=== PATIENT | female | born 1985 | race Caucasian/White ===

== ENCOUNTER 2018-07-17 16:27 | Inpatient (IN) | payer OTHER ==
--- NOTE | 2018-07-17 16:34 | PDOC ---
Rapid Medical Evaluation Time Seen by Provider: 07/17/18 16:29 Medical Evaluation: I have performed a brief in-person evaluation of this patient. The patient presents with a chief complaint of: sent by Dr. Cordelia Wheeler for admission for IV abx for right leg cellulitis with MRSA. She's been on PO Bactrim but infection has worsened. Pertinent physical exam findings: Red cellulitis to right medial LE I have ordered the following: labs, UA/hcg The patient will proceed to the ED for further evaluation. Discharge Disposition - Diagnosis Cellulitis Qualifiers: Site of cellulitis: extremity Site of cellulitis of extremity: lower extremity Laterality: right Qualified Code(s): L03.115 - Cellulitis of right lower limb - Referrals - Patient Instructions - Post Discharge Activity
[2018-07-17 17:17] LABS: BASO % 0.4 % (0-2.0); EOS % 1.5 % (0-4.5); HEMATOCRIT 37.8 % (32.4-45.2); HEMOGLOBIN 13.1 GM/dL (10.7-15.3); MCH 31.4 pg (25.7-33.7); MCHC 34.8 g/dl (32.0-36.0); MEAN CELL VOLUME 90.3 fl (80-96); MEAN PLT VOLUME 8.5 fl (7.5-11.1); MONO % 5.3 % (3.8-10.2); NEUT % 81.8 % (42.8-82.8); PLATELET COUNT 275 K/MM3 (134-434); RBC 4.18 M/mm3 (3.60-5.2); RDW 12.6 % (11.6-15.6); WHITE BLOOD COUNT 10.9 K/mm3 (4.0-10.0)
[2018-07-17] MEDS ORDERED: ACETAMINOPHEN 325 MG TABLET (FP) PO ONE ×2 (17:22→20:33)
[2018-07-17] MEDS ORDERED: VANCOMYCIN 1,000 MG in DEXTROSE 5%-WATER - 250 ML IVPB ONE (17:22)
--- NOTE | 2018-07-17 17:34 | PDOC ---
History of Present Illness - General Chief Complaint: Wound Stated Complaint: PCP ADMIT Time Seen by Provider: 07/17/18 16:29 History Source: Patient Exam Limitations: No Limitations - History of Present Illness Initial Comments: 07/17/18 17:35 Patient is a 33 year old female with no significant PMHx, who was referred by urgent care for admission for cellulitis by her PMD. Patient states that on Saturday she noticed a spider bite looking blister on her right calf. On Saturday she went to a [employer] park and noted that when she jumped into the foam pit, it irritated her blister. On Saturday she noted that blister became more painful, erythematous, and clear fluid drainage so she went to an Urgent Care. At the Urgent Care they cleaned, dressed the wound and gave her Bactrim. The urgent care called her today and stated that lab results show she is positive for MRSA. She states that she took Advil today for the pain. She denies any fever, chills, nausea, vomiting, shortness of breath, chest pain. PCP: Prince Wheeler Allergies: denies Past History - Past Medical History Allergies/Adverse Reactions: Allergies Allergy/AdvReac Type Severity Reaction Status Date / Time No Known Allergies Allergy Verified 07/17/18 16:29 Home Medications: Ambulatory Orders Sulfamethoxazole/Trimethoprim [Bactrim Ds Tablet] 1 each PO DAILY 07/17/18 COPD: No - Suicide/Smoking/Psychosocial Hx Smoking History: Never smoked Have you smoked in the past 12 months: No Information on smoking cessation initiated: No Hx Alcohol Use: No Drug/Substance Use Hx: No Substance Use Type: None Review of Systems - Review of Systems Able to Perform ROS?: Yes Comments:: 07/17/18 17:36 CONSTITUTIONAL: No reported: Fever, Chills, Diaphoresis, Generalized Weakness, Malaise, Loss of Appetite HEENT: No reported: Rhinorrhea, Nasal Congestion, Throat Pain, Throat Swelling, Difficulty Swallowing, Mouth Swelling, Ear Pain, Eye Pain, Visual Changes CARDIOVASCULAR: No reported: Chest Pain, Syncope, Palpitations, Irregular Heart Rate, Lightheadedness, Peripheral Edema RESPIRATORY: No reported: Cough, Shortness of Breath, SOB with Exertion, Orthopnea, Wheezing , Stridor, Hemoptysis GASTROINTESTINAL: No reported: Abdominal pain, Abdominal Distension, Nausea, Vomiting, Diarrhea, Constipation, Melena, Hematochezia GENITOURINARY: No reported: Dysuria, Frequency, Urgency, Hesitancy, Flank Pain, Genital Pain MUSCULOSKELETAL: No reported: Myalgia, Arthralgia, Joint Swelling, Back pain, Neck Pain SKIN: Reported: Right LE wound with clear fluid drainage. No reported: Itching, Pallor HEMEATOLOGIC/IMMUNOLOGIC: No reported: Easy Bleeding, Easy Bruising, Lymphadenopathy, Frequent infections ENDOCRINE: No reported: Unexplained Weight Gain, Unexplained Weight Loss, Heat Intolerance , Cold Intolerance NEUROLOGIC: No reported: Headache, Focal Weakness, Paresthesias, Vertigo, Lightheadedness, Unsteady Gait, Seizure, Mental Status Changes, Incontinence PSYCHIATRIC: No reported: Anxiety, Depression *Physical Exam - Vital Signs Last Vital Signs Temp Pulse Resp BP Pulse Ox 98.4 F 99 H 18 131/85 100 07/17/18 16:30 07/17/18 16:30 07/17/18 16:30 07/17/18 16:30 07/17/18 16:30 - Physical Exam Comments: 07/17/18 17:36 GENERAL: The patient is awake, alert, and fully oriented, Nontoxic - in no acute distress. HEAD: Normocephalic, atraumatic. EYES: extraocular movements intact, sclera anicteric, conjunctiva clear. ENT: Normal voice, Moist mucous membranes. NECK: Normal range of motion, supple LUNGS: Breath sounds equal, clear to auscultation bilaterally. No wheezes, no rhonchi, no rales. HEART: Regular rate and rhythm, without murmur, rub or gallop. ABDOMEN: Soft, nontender, No guarding, no rebound.No CVA tenderness EXTREMITIES: + Right LE cellulitic wound with surrounding errythema and central skin breakage. +ttp NEUROLOGICAL: No facial assymetry, Normal speech, moving all 4 extremities spontaneously and symmetrically PSYCH: Normal mood, normal affect. SKIN: + cellulitic wound to RLE with surrouding errytheme and clear fluid drainage. Warm, Dry, normal turgor. ED Treatment Course - LABORATORY CBC & Chemistry Diagram: 07/17/18 17:00 07/17/18 17:00 Medical Decision Making - Medical Decision Making 07/17/18 17:22 33y F no pmhx presents with complaint of persistent MRSA cellulitis wound with failed outpatient treatment with bactrim. no systemic complaints. on exam pt has erythema/induration in the R calf with central skin breakage with discharge of yellowish discharge pt has culture sensitivity showing MRSA senstive to vanco anticipate admission for outpatient treatment failure 07/17/18 18:[address] best agree with admission for inpatient management of mrsa celluitis Case discussed in detail with admitting physician including history, physical exam and ancillary studies. Admitting physician has assumed care for the patient, will follow all pending diagnostics and will complete the evaluation and treatment. *DC/Admit/Observation/Transfer Diagnosis at time of Disposition: Cellulitis Qualifiers: Site of cellulitis: extremity Site of cellulitis of extremity: lower extremity Laterality: right Qualified Code(s): L03.115 - Cellulitis of right lower limb - Discharge Dispostion Condition at time of disposition: Stable Decision to Admit order: Yes - Referrals Referrals: Prince Wheeler MD [Primary Care Provider] - - Patient Instructions - Post Discharge Activity
[2018-07-17 17:42] LABS: ALBUMIN 3.8 g/dl (3.4-5.0); ANION GAP 10 MMOL/L (8-16); BILIRUBIN,TOTAL 0.5 mg/dL (0.2-1.0); CALCIUM 8.8 mg/dL (8.5-10.1); CHLORIDE 104 mmol/L (98-107); CO2 23 mmol/L (21-32); CREATININE 0.7 mg/dL (0.55-1.02); GLUCOSE,RANDOM 131 mg/dL (74-106); POTASSIUM 4.1 mmol/L (3.5-5.1); SGOT/AST 16 U/L (15-37); SODIUM 137 mmol/L (136-145)
[2018-07-17] MEDS ORDERED: ACETAMINOPHEN 325 MG TABLET (FP) ONE ×2 (17:45→20:33)
[2018-07-17] MEDS ORDERED: VANCOMYCIN 1 GRAM (PRE-DOCKED) 1,000 MG/250 ML BAG IVPB ONE (17:45)
[2018-07-17 17:48] LABS: ALK PHOS 81 U/L (45-117); BLOOD UREA NITROGEN 16 mg/dL (7-18); SGPT/ALT 29 U/L (12-78); TOT PROT 7.3 g/dl (6.4-8.2)
[2018-07-17 19:39] LABS: URINE APPEARANCE CLEAR; URINE BILIRUBIN NEGATIVE (<2.0 mg/dL); URINE COLOR STRAW; URINE GLUCOSE (UA) NEGATIVE (NEGATIVE); URINE KETONE TRACE (NEGATIVE); URINE LEUK ESTERASE NEGATIVE (NEGATIVE); URINE NITRITE NEGATIVE (NEGATIVE); URINE PROTEIN NEGATIVE (NEGATIVE); URINE UROBILINOGEN NEGATIVE mg/dL (0.2-1.0)
[2018-07-17 19:41] LABS: HCG,QUALITATIVE URINE Negative
[2018-07-17 20:08] LABS: EPI CELLS RARE /HPF (FEW); URINE BACTERIA RARE /hpf (NONE SEEN)
--- NOTE | 2018-07-17 20:20 | HP ---
CHIEF COMPLAINT: Wound Infection PCP: Dr. Prince Wheeler HISTORY OF PRESENT ILLNESS: 33 y/o with no PMHx was recetly treated for a spider bite to her RLE placed on Bactrim. Who presents to the ED sent in by the urgent care center for +MRSA culture of the RLE. Patient reports having pain, redness and clear-yellow drainage. Patient reports jumping on a trampoline at a Park and noted a scrape on her leg. ER course was notable for: (1) WBC 10.9 (2) Glucose 131 (3) Recent Travel: None PAST MEDICAL HISTORY: None PAST SURGICAL HISTORY: Social History: Smoking: Never Alcohol: None Drugs: None Family History: Non contributory Allergies No Known Allergies Allergy (Verified 07/17/18 16:29) HOME MEDICATIONS: Home Medications Medication Instructions Recorded Sulfamethoxazole/Trimethoprim 1 each PO DAILY 07/17/18 [Bactrim Ds Tablet] REVIEW OF SYSTEMS CONSTITUTIONAL: Absent: fever, chills, diaphoresis, generalized weakness, malaise, loss of appetite, weight change HEENT: Absent: rhinorrhea, nasal congestion, throat pain, throat swelling, difficulty swallowing, mouth swelling, ear pain, eye pain, visual changes CARDIOVASCULAR: Absent: chest pain, syncope, palpitations, irregular heart rate, lightheadedness , peripheral edema RESPIRATORY: Absent: cough, shortness of breath, dyspnea with exertion, orthopnea, wheezing, stridor, hemoptysis GASTROINTESTINAL: Absent: abdominal pain, abdominal distension, nausea, vomiting, diarrhea, constipation, melena, hematochezia GENITOURINARY: Absent: dysuria, frequency, urgency, hesitancy, hematuria, flank pain, genital pain MUSCULOSKELETAL: Absent: myalgia, arthralgia, joint swelling, back pain, neck pain SKIN: RLE erythema, clear to yellow drainage Absent: rash, itching, pallor HEMATOLOGIC/IMMUNOLOGIC: Absent: easy bleeding, easy bruising, lymphadenopathy, frequent infections ENDOCRINE: Absent: unexplained weight gain, unexplained weight loss, heat intolerance, cold intolerance NEUROLOGIC: Absent: headache, focal weakness or paresthesias, dizziness, unsteady gait, seizure, mental status changes, bladder or bowel incontinence PSYCHIATRIC: Absent: anxiety, depression, suicidal or homicidal ideation, hallucinations. PHYSICAL EXAMINATION Vital Signs - 24 hr 07/17/18 07/17/18 16:30 19:45 Temperature 98.4 F Pulse Rate 99 H Pulse Rate [ 100 H Left Radial] Respiratory 18 17 Rate Blood Pressure 131/85 Blood Pressure 117/69 [Right Arm] O2 Sat by Pulse 100 98 Oximetry (%) GENERAL: Awake, alert, and fully oriented, in no acute distress. HEAD: Normal with no signs of trauma. EYES: Pupils equal, round and reactive to light, extraocular movements intact, sclera anicteric, conjunctiva clear. No lid lag. EARS, NOSE, THROAT: Ears normal, nares patent, oropharynx clear without exudates. Moist mucous membranes. NECK: Normal range of motion, supple without lymphadenopathy, JVD, or masses. LUNGS: Breath sounds equal, clear to auscultation bilaterally. No wheezes, and no crackles. No accessory muscle use. HEART: Regular rate and rhythm, normal S1 and S2 without murmur, rub or gallop. ABDOMEN: Soft, nontender, not distended, normoactive bowel sounds, no guarding, no rebound, no masses. No hepatomegaly or splenomegaly. MUSCULOSKELETAL: Normal range of motion at all joints. No bony deformities or tenderness. No CVA tenderness. UPPER EXTREMITIES: 2+ pulses, warm, well-perfused. No cyanosis. No clubbing. No peripheral edema. LOWER EXTREMITIES: 2+ pulses, warm, well-perfused. No calf tenderness. No peripheral edema. +1 pitting edema from below R- knee down to R-Ankle. NEUROLOGICAL: Cranial nerves II-XII intact. Normal speech. Gait not observed. PSYCHIATRIC: Cooperative. Good eye contact. Appropriate mood and affect. SKIN: Warm, dry, normal turgor, no rashes or lesions noted, normal capillary refill. R- medial leg circumferential wound, with darker angry erythematous induration area within the medial wound, opened with scant bloody drainage. Laboratory Results - last 24 hr 07/17/18 07/17/18 07/17/18 17:00 17:00 18:30 WBC 10.9 H RBC 4.18 Hgb 13.1 Hct 37.8 MCV 90.3 MCH 31.4 MCHC 34.8 RDW 12.6 Plt Count 275 MPV 8.5 Absolute Neuts (auto) 8.9 H Neutrophils % 81.8 Lymphocytes % 11.0 Monocytes % 5.3 Eosinophils % 1.5 Basophils % 0.4 Nucleated RBC % 0 Sodium 137 Potassium 4.1 Chloride 104 Carbon Dioxide 23 Anion Gap 10 BUN 16 Creatinine 0.7 Creat Clearance w eGFR > 60 Random Glucose 131 H Calcium 8.8 Total Bilirubin 0.5 AST 16 ALT 29 Alkaline Phosphatase 81 Total Protein 7.3 Albumin 3.8 Urine Color Straw Urine Appearance Clear Urine pH 6.0 Ur Specific [place] 1.005 Urine Protein Negative Urine Glucose (UA) Negative Urine Ketones Trace H Urine Blood 1+ H Urine Nitrite Negative Urine Bilirubin Negative Urine Urobilinogen Negative Ur Leukocyte Esterase Negative Urine WBC (Auto) 1 Urine RBC (Auto) <1 Ur Epithelial Cells Rare Urine Bacteria Rare Urine HCG, Qual Negative ASSESSMENT/PLAN: 33 y/o woman with no PMHx. Admitted to [facility] for Cellulitis to RLE secondary to Failed Outpatient Therapy for further evaluation of their emergent condition. Plan: 1. Cellulitis of RLE Likely secondary to failed outpatient therapy Outpatient culture- +MRSA Will place on isolation precautions Vancomycin given in ED, will continue Appreciate ID consult Appreciate Surgical Consult for debridement No leukocytosis, afebrile likely due to recent ABX Will monitor CBC, BMP Monitor vitals Morphine Sulfate prn Wound care nurse for dressing changes 2. Hyperglycemia Likely due to infectious process vs prediabetes syndrome HgbA1c in am Monitor lytes 3. FEN Po fluids as tolerated Replete lytes prn Diabetic Diet 4. DVT ppx OOB SCD to LLE Lovenox SQ Code Status: Full Code Dispo: Requires Inpatient Care Problem List - Problem (1) Hyperglycemia Code(s): R73.9 - HYPERGLYCEMIA, UNSPECIFIED (2) Cellulitis Code(s): L03.90 - CELLULITIS, UNSPECIFIED Qualifiers: Site of cellulitis: extremity Site of cellulitis of extremity: lower extremity Laterality: right Qualified Code(s): L03.115 - Cellulitis of right lower limb Visit type - Emergency Visit Emergency Visit: Yes ED Registration Date: 07/17/18 Care time: The patient presented to the Emergency Department on the above date and was hospitalized for further evaluation of their emergent condition. - New Patient This patient is new to me today: Yes Date on this admission: 07/17/18 - Critical Care Critical Care patient: No Hospitalist Screening - Colonoscopy Questionnaire Colonoscopy Questionnaire: Colonoscopy Questionnaire - Patient: 50 - 75 years old and never had a screening colonoscopy: No History of colon or rectal polyps, or CA: No History of IBD, Crohn's disease or UC: No History of abdominal radiation therapy as a child: No - Relative: 1 with colon or rectal CA, or polyps at age 60 or younger: No Colon or rectal CA diagnosed at age 45 or younger: No Multiple relatives with colon or rectal CA: No - Outcome: Screening Result: Negative Screen
[2018-07-17] MEDS ORDERED: ACETAMINOPHEN 325 MG TABLET (FP) PO PRN (20:36)
[2018-07-17] MEDS ORDERED: KETOROLAC TROMETHAMINE 30 MG/1 ML VIAL IVPUSH ONE (23:15)
[2018-07-17] MEDS ORDERED: morphine SULFATE 4 MG/ML VIAL IVPUSH ONE (23:45)
[2018-07-18] MEDS ORDERED: MORPHINE SULFATE 2 MG/ML VIAL IVPUSH ONE (01:58)
[2018-07-18] MEDS ORDERED: morphine SULFATE 4 MG/ML VIAL IVPUSH PRN (03:00)
[2018-07-18] MEDS ORDERED: LORazepam 2 MG/ML SDV VIAL IVPUSH ONE (04:32)
[2018-07-18] MEDS ORDERED: PT OWN MED DRAWER 7, Y5N ONE (07:46)
[2018-07-18 08:00] LABS: BASO % 0.6 % (0-2.0); EOS % 4.6 % (0-4.5); HEMATOCRIT 36.1 % (32.4-45.2); HEMOGLOBIN 12.4 GM/dL (10.7-15.3); LYMPH % 16.3 % (8-40); MCH 31.1 pg (25.7-33.7); MCHC 34.5 g/dl (32.0-36.0); MEAN CELL VOLUME 90.1 fl (80-96); MEAN PLT VOLUME 8.5 fl (7.5-11.1); MONO % 9.8 % (3.8-10.2); NEUT % 68.7 % (42.8-82.8); PLATELET COUNT 244 K/MM3 (134-434); RBC 4.01 M/mm3 (3.60-5.2); RDW 12.5 % (11.6-15.6); WHITE BLOOD COUNT 8.5 K/mm3 (4.0-10.0)
--- NOTE | 2018-07-18 08:42 | CONSULT ---
- Consultation REQUESTING PROVIDER: Tee Sims NP CONSULT REQUEST: We have been asked to surgically evaluate this patient for ( specify). PCP:Rogelio Dorado HISTORY OF PRESENT ILLNESS: progressive pain and swelling and d/c from an area on the RLE; there was a ? break in the skin by a spider bite and then possible contact with infected objects. PMHx: none PSHx: none Home Medications Medication Instructions Recorded Sulfamethoxazole/Trimethoprim 1 each PO DAILY 07/17/18 [Bactrim Ds Tablet] Allergies Allergy/AdvReac Type Severity Reaction Status Date / Time No Known Allergies Allergy Verified 07/17/18 16:29 PHYSICAL EXAM: GENERAL: Awake, alert, and fully oriented, in no acute distress. HEAD: Normal with no signs of trauma. EYES: PERRL, sclera anicteric, conjunctiva clear. NECK: Normal ROM, supple without lymphadenopathy, JVD, or masses. ABDOMEN: Soft, nontender, not distended, normoactive bowel sounds, no guarding, no rebound, no masses. No organomegaly. MUSCULOSKELETAL: Normal ROM at all joints. No bony deformities or tenderness. No CVA tenderness. UPPER EXTREMITIES: 2+ pulses, warm, well-perfused. No cyanosis. Cap refill <2 seconds. No peripheral edema. LOWER EXTREMITIES: 2+ pulses, warm, well-perfused. Area of ABSSSI of the RLE w/ drainage and TTP and erythema NEUROLOGICAL: Normal speech, gait not observed. PSYCH: Cooperative. Good eye contact. Appropriate mood and affect. SKIN: Warm, dry, normal turgor, no rashes or lesions noted except as above. Vital Signs Temperature 98.6 F 07/18/18 06:00 Pulse Rate 85 07/18/18 06:00 Respiratory Rate 18 07/18/18 06:00 Blood Pressure 105/53 07/18/18 06:00 O2 Sat by Pulse Oximetry (%) 100 07/17/18 22:00 Lab Results WBC 8.5 K/mm3 (4.0-10.0) 07/18/18 07:18 RBC 4.01 M/mm3 (3.60-5.2) 07/18/18 07:18 Hgb 12.4 GM/dL (10.7-15.3) 07/18/18 07:18 Hct 36.1 % (32.4-45.2) 07/18/18 07:18 MCV 90.1 fl (80-96) 07/18/18 07:18 MCHC 34.5 g/dl (32.0-36.0) 07/18/18 07:18 RDW 12.5 % (11.6-15.6) 07/18/18 07:18 Plt Count 244 K/MM3 (134-434) 07/18/18 07:18 Sodium 137 mmol/L (136-145) 07/17/18 17:00 Potassium 4.1 mmol/L (3.5-5.1) 07/17/18 17:00 Chloride 104 mmol/L (98-107) 07/17/18 17:00 Carbon Dioxide 23 mmol/L (21-32) 07/17/18 17:00 Anion Gap 10 MMOL/L (8-16) 07/17/18 17:00 BUN 16 mg/dL (7-18) 07/17/18 17:00 Creatinine 0.7 mg/dL (0.55-1.02) 07/17/18 17:00 Random Glucose 131 mg/dL (74-106) H 07/17/18 17:00 Calcium 8.8 mg/dL (8.5-10.1) 07/17/18 17:00 IMP: MRSA skin/soft tissue infection by hx. of the right calf refractory to outpatient tx. PLAN: Will need I and D; operative debridement; d/w patient r/b/t/a's and the fact that the wound will be left open to heal by secondary intention. Shahid Okeefe MD FACS
[2018-07-18 08:46] LABS: CHLORIDE 107 mmol/L (98-107); POTASSIUM 4.2 mmol/L (3.5-5.1); SODIUM 138 mmol/L (136-145)
[2018-07-18 08:50] LABS: ANION GAP 6 MMOL/L (8-16); BLOOD UREA NITROGEN 14 mg/dL (7-18); CALCIUM 8.3 mg/dL (8.5-10.1); CO2 25 mmol/L (21-32); CREATININE 0.7 mg/dL (0.55-1.02); GLUCOSE,RANDOM 94 mg/dL (74-106)
[2018-07-18] MEDS ORDERED: VANCOMYCIN 1,000 MG in DEXTROSE 5%-WATER - 250 ML IVPB SCH (10:00)
[2018-07-18] MEDS ORDERED: ENOXAPARIN NA (PORCINE) 40 MG/0.4 ML DISP.SYRIN SQ SCH (10:00)
--- NOTE | 2018-07-18 11:17 | PN ---
Progress Note, Physician History of Present Illness: pt seen/ examined. chart reviewed Anxious pain - controlled with meds - Current Medication List Current Medications: Active Medications Acetaminophen (Tylenol -) 650 mg PO Q6H PRN PRN Reason: FEVER Enoxaparin Sodium (Lovenox -) 40 mg SQ DAILY [facility] Vancomycin HCl 1,000 mg/ (Dextrose) 250 mls @ 166.667 mls/hr IVPB Q12H [facility]; Protocol Morphine Sulfate (Morphine Sulfate) 4 mg IVPUSH Q6H PRN PRN Reason: PAIN LEVEL 7 - 10 Last Admin: 07/18/18 10:22 Dose: 4 mg - Objective Vital Signs: Vital Signs Temperature 98.6 F 07/18/18 06:00 Pulse Rate 85 07/18/18 06:00 Respiratory Rate 18 07/18/18 06:00 Blood Pressure 105/53 07/18/18 06:00 O2 Sat by Pulse Oximetry (%) 100 07/17/18 22:00 Constitutional: Yes: Anxious Neck: Yes: Supple Cardiovascular: Yes: Regular Rate and Rhythm Respiratory: Yes: CTA Bilaterally Gastrointestinal: Yes: Soft Wound/Incision: Yes: Dressing Dry and Intact Neurological: Yes: Alert Labs: CBC, BMP 07/18/18 07:18 07/18/18 07:18 Problem List - Problems (1) Cellulitis Code(s): L03.90 - CELLULITIS, UNSPECIFIED Qualifiers: Site of cellulitis: extremity Site of cellulitis of extremity: lower extremity Laterality: right Qualified Code(s): L03.115 - Cellulitis of right lower limb Assessment/Plan Discussed Abx Pain control For I/D today Check L[place] titres I/D to follow will follow
--- NOTE | 2018-07-18 11:33 | CON.ID ---
Consult Consult Specialty:: infectious diseases Reason for Consultation:: abscess of the rt leg - History of Present Illness Chief Complaint: pain and swelling of the rt medial side of the leg History of Present Illness: 33 y/o with no PMHx was recetly treated for a spider bite to her RLE placed on Bactrim. Who presents to the ED sent in by the urgent care center for +MRSA culture of the RLE. Patient reports having pain, redness and clear-yellow drainage. Patient reports [place] and noted a scrape on her leg. patient mentions that she thinks she might have been bitten by something but she does not know for sure she noticed swelling about a wek back and then it was not improving so she visited urgent care who took cx and put her on bactrim which did not help her the cx then grew mrsa according tot he patient and she was send to the hospital Now the patient is going to undergo incision and drainage denies any fever or any other symptoms - History Source History Provided By: Patient Limitations to Obtaining History: No Limitations - Past Medical History ...LMP Comment: Patient on IUD, can't remember LMP ...: No - Alcohol/Substance Use Hx Alcohol Use: Yes - Smoking History Smoking history: Former smoker Have you smoked in the past 12 months: No If you are a former smoker, when did you quit?: 10 years ago Home Medications - Allergies Allergies/Adverse Reactions: Allergies Allergy/AdvReac Type Severity Reaction Status Date / Time No Known Allergies Allergy Verified 07/17/18 16:29 - Home Medications Home Medications: Ambulatory Orders Sulfamethoxazole/Trimethoprim [Bactrim Ds Tablet] 1 each PO DAILY 07/17/18 Review of Systems - Review of Systems Constitutional: reports: No Symptoms Eyes: reports: No Symptoms HENT: reports: No Symptoms Neck: reports: No Symptoms Cardiovascular: reports: No Symptoms Respiratory: reports: No Symptoms Gastrointestinal: reports: No Symptoms Genitourinary: reports: No Symptoms Musculoskeletal: reports: Muscle Pain Integumentary: reports: Change in Color, Erythema, Wound, Other (draining) Hematology/Lymphatic: reports: No Symptoms Psychiatric: reports: No Symptoms Physical Exam Vital Signs: Vital Signs Temperature 98.6 F 07/18/18 06:00 Pulse Rate 85 07/18/18 06:00 Respiratory Rate 18 07/18/18 06:00 Blood Pressure 105/53 08/24/18 06:00 O2 Sat by Pulse Oximetry (%) 100 07/17/18 22:00 Constitutional: Yes: Well Nourished, Calm, Mild Distress, Obese Eyes: Yes: Conjunctiva Clear HENT: Yes: Atraumatic Neck: Yes: Supple, Trachea Midline Cardiovascular: Yes: Regular Rate and Rhythm Respiratory: Yes: Regular, CTA Bilaterally Gastrointestinal: Yes: Normal Bowel Sounds, Soft Musculoskeletal: Yes: WNL Extremities: Yes: Erythema (rt meidal side of the leg), Other Integumentary: Yes: Erythema, Other Wound/Incision: Yes: Open to air, Draining, Other (reddened) Neurological: Yes: Alert, Oriented Psychiatric: Yes: Alert, Oriented Labs: CBC, BMP 07/18/18 07:18 07/18/18 07:18 Imaging - Results Ultrasound: Report Reviewed, Image Reviewed Assessment/Plan cellulittis swelling of the leg wound infection plan will continue vanco await for i and d rest as per the team
[2018-07-18] MEDS ORDERED: MIDAZOLAM HCL 2 MG/2 ML SINGLE DOSE VIAL ONE ×2 (14:44)
[2018-07-18] MEDS ORDERED: PROPOFOL 20 ML ONE (14:49)
--- NOTE | 2018-07-18 15:27 | OP ---
Operative Note - Note: Operative Date: 07/18/18 Pre-Operative Diagnosis: soft tissue abscess RLE Operation: excisional debridement soft tissue infection RLE Findings: nonviable skin and subcutaneous fat and superficial fascia Surgeon: Shahid Okeefe Anesthesiologist/PRODUCTION TEAM LEADER: Karmen Johnson MD Anesthesia: General Specimens Removed: noniable skin and subcutaneous fat and superficial fascia Estimated Blood Loss (mls): 10
[2018-07-18] MEDS: LACTATED RINGERS SOLUTION 1,000 ML IV SCH (17:26)
[2018-07-18] MEDS: VANCOMYCIN 1,250 MG in DEXTROSE 5%-WATER - 250 ML IVPB SCH (17:28)
[2018-07-18] MEDS ORDERED: VANCOMYCIN 1,250 MG in DEXTROSE 5%-WATER - 250 ML IVPB SCH (18:00)
[2018-07-18] MEDS ORDERED: MORPHINE SULFATE 10 MG/1 ML *VIAL IVPUSH ONE (18:15)
[2018-07-18] MEDS: ONDANSETRON 4 MG/2 ML VIAL IVPUSH PRN (18:18)
[2018-07-19] MEDS: morphine SULFATE 4 MG/ML VIAL IVPUSH PRN ×2 (00:25→09:52)
[2018-07-19] MEDS: ONDANSETRON 4 MG/2 ML VIAL IVPUSH PRN (00:26)
[2018-07-19] MEDS: LORazepam 2 MG/ML SDV VIAL IVPUSH PRN ×2 (01:09→22:02)
[2018-07-19] MEDS: LACTATED RINGERS SOLUTION 1,000 ML IV SCH ×2 (06:33→18:14)
[2018-07-19] MEDS: ENOXAPARIN NA (PORCINE) 40 MG/0.4 ML DISP.SYRIN SQ SCH (09:55)
--- NOTE | 2018-07-19 11:42 | PN ---
Progress Note (short form) - Note Progress Note: Attending Surgeon POD #1 c/o pain; o/w ok VSS AF LLE- less erythema c/w preop wound open; no drainage; wound is 2.5 cm. x 2.5 cm 2.0 cm. IMP: doing well PLAN: LWC and remainder per primary team. Shahid Okeefe MD FACS
[2018-07-19] MEDS ORDERED: ACETAMINOPHEN 325 MG TABLET (FP) PO ONE (12:00)
[2018-07-19] MEDS ORDERED: oxyCODONE HCL 5 MG TABLET PO ONE (12:00)
[2018-07-19 12:19] VITALS: BMI 26.7
--- NOTE | 2018-07-19 12:21 | PN ---
Progress Note, Physician Chief Complaint: day #1 s/p IandD for calf infection - Current Medication List Current Medications: Active Medications Acetaminophen (Tylenol -) 650 mg PO Q6H PRN PRN Reason: FEVER Enoxaparin Sodium (Lovenox -) 40 mg SQ DAILY [facility] Last Admin: 07/19/18 09:55 Dose: 40 mg Fentanyl (Sublimaze Injection -) 50 mcg IVPUSH [id number] PRN PRN Reason: PAIN-PACU ORDER X 4 DOSES ONLY Lactated Ringer's (Lactated Ringers Solution) 1,000 mls @ 75 mls/hr IV ASDIR [facility] Last Admin: 07/19/18 06:33 Dose: 75 mls/hr Vancomycin HCl 1,250 mg/ (Dextrose) 250 mls @ 250 mls/2 hr IVPB Q24H [facility]; Protocol Last Admin: 07/18/18 17:28 Dose: 250 mls/2 hr Lorazepam (Ativan Injection -) 0.5 mg IVPUSH Q12H PRN PRN Reason: ANXIETY Last Admin: 07/19/18 01:09 Dose: 0.5 mg - Objective Vital Signs: Vital Signs Temperature 97.3 F L 07/19/18 06:00 Pulse Rate 86 07/19/18 06:00 Respiratory Rate 18 07/19/18 09:00 Blood Pressure 101/49 07/19/18 06:00 O2 Sat by Pulse Oximetry (%) 99 07/19/18 09:00 Labs: CBC, BMP 07/18/18 07:18 07/18/18 07:18 Assessment/Plan Doing well s/p GA for calf IandD. No anesthetic issues/complications
[2018-07-19] MEDS: ONDANSETRON 4 MG/2 ML VIAL IVPB PRN ×2 (12:46→22:07)
[2018-07-19] MEDS ORDERED: DOCUSATE SODIUM 100 MG CAPSULE (FP) PO PRN (13:17)
--- NOTE | 2018-07-19 13:22 | PN ---
Progress Note (short form) - Note Progress Note: pod # 1 c/c - pain requests pain meds also had nausea earlier looks anxious Vital Signs Temp 97.3 F L 07/19/18 06:00 Pulse 86 07/19/18 06:00 Resp 18 07/19/18 09:00 BP 101/49 07/19/18 06:00 Pulse Ox 99 07/19/18 09:00 Intake & Output 07/18/18 07/19/18 07/19/18 23:59 11:59 23:59 Intake Total 740 1255 Output Total 0 Balance 740 1255 Weight 151 lb Intake: IV 375 825 Lactated Ringers Solution 825 1,000 ml @ 75 mls/hr IV ASDIR MIRNA Rx#:[id number] Oral 365 430 Output: Urine 0 Other: Voiding Method Toilet Toilet # Unmeasured Voids Void 1 Bowel Movement No No # Bowel Movements 2 Height 5 ft 3 in Body Mass Index (BMI) 26.7 Active Medications Acetaminophen (Tylenol -) 650 mg PO Q6H PRN PRN Reason: FEVER Acetaminophen (Tylenol -) 325 mg PO Q4H PRN PRN Reason: PAIN SCALE 6-10 Stop: 07/22/18 12:43 Docusate Sodium (Colace -) 100 mg PO BID PRN PRN Reason: CONSTIPATION Enoxaparin Sodium (Lovenox -) 40 mg SQ DAILY MIRNA Last Admin: 07/19/18 09:55 Dose: 40 mg Lactated Ringer's (Lactated Ringers Solution) 1,000 mls @ 75 mls/hr IV ASDIR MIRNA Last Admin: 07/19/18 06:33 Dose: 75 mls/hr Vancomycin HCl 1,250 mg/ (Dextrose) 250 mls @ 250 mls/2 hr IVPB Q24H MIRNA; Protocol Last Admin: 07/18/18 17:28 Dose: 250 mls/2 hr Lorazepam (Ativan Injection -) 0.5 mg IVPUSH Q12H PRN PRN Reason: ANXIETY Last Admin: 07/19/18 01:09 Dose: 0.5 mg Ondansetron HCl (Zofran Injection) 4 mg IVPB Q8H PRN PRN Reason: NAUSEA Last Admin: 07/19/18 12:46 Dose: 4 mg Oxycodone HCl (Roxicodone -) 5 mg PO Q4H PRN PRN Reason: PAIN SCALE 6-10 CBC, BMP 07/18/18 07:18 07/18/18 07:18 Microbiology 07/17/18 21:50 Gram Stain - Final Leg - Right Lower Wound Culture - Preliminary Presumptive Mrsa (Pbp2a Pos) 07/17/18 18:00 Blood Culture - Preliminary Blood - Peripheral Venous NO GROWTH OBTAINED AFTER 24 HOURS, INCUBATION TO CONTINUE FOR 4 DAYS. 07/17/18 18:00 Blood Culture - Preliminary Blood - Peripheral Venous NO GROWTH OBTAINED AFTER 24 HOURS, INCUBATION TO CONTINUE FOR 4 DAYS. Physical Exam. Constitutional: Yes: Anxious. no distress Neck: Yes: Supple. no jvd Cardiovascular: Yes: Regular Rate and Rhythm Respiratory: Yes: CTA Bilaterally Gastrointestinal: Yes: Soft Wound/Incision: Yes: Dressing Dry and Intact Neurological: Yes: Alert Assessment/Plan Pod # 1 Abx Pain control stool softners will follow mrsa precautions in place Problem List - Problems (1) Cellulitis Code(s): L03.90 - CELLULITIS, UNSPECIFIED Qualifiers: Site of cellulitis: extremity Site of cellulitis of extremity: lower extremity Laterality: right Qualified Code(s): L03.115 - Cellulitis of right lower limb
[2018-07-19] MEDS: ACETAMINOPHEN 325 MG TABLET (FP) PO PRN ×2 (15:56→22:01)
[2018-07-19] MEDS: oxyCODONE HCL 5 MG TABLET PO PRN ×2 (15:56→22:01)
[2018-07-19] MEDS: VANCOMYCIN 1,250 MG in DEXTROSE 5%-WATER - 250 ML IVPB SCH (17:17)
[2018-07-19] MEDS: IBUPROFEN 400 MG TABLET (FP) PO PRN (18:05)
[2018-07-20] MEDS: oxyCODONE HCL 5 MG TABLET PO PRN ×3 (06:02→18:46)
[2018-07-20] MEDS: ACETAMINOPHEN 325 MG TABLET (FP) PO PRN ×3 (06:03→18:46)
[2018-07-20] MEDS: IBUPROFEN 400 MG TABLET (FP) PO PRN ×3 (06:35→22:47)
[2018-07-20 06:37] LABS: BASO % 1.2 % (0-2.0); HEMATOCRIT 31.3 % (32.4-45.2); HEMOGLOBIN 10.6 GM/dL (10.7-15.3); LYMPH % 39.7 % (8-40); MEAN PLT VOLUME 8.5 fl (7.5-11.1); MONO % 7.6 % (3.8-10.2); NEUT % 46.5 % (42.8-82.8); PLATELET COUNT 234 K/MM3 (134-434); RBC 3.43 M/mm3 (3.60-5.2); RDW 12.5 % (11.6-15.6); WHITE BLOOD COUNT 5.9 K/mm3 (4.0-10.0)
[2018-07-20 08:26] LABS: CHLORIDE 109 mmol/L (98-107); POTASSIUM 4.3 mmol/L (3.5-5.1); SODIUM 144 mmol/L (136-145)
[2018-07-20 08:38] LABS: ALBUMIN 2.8 g/dl (3.4-5.0); ALK PHOS 62 U/L (45-117); ANION GAP 9 MMOL/L (8-16); BILIRUBIN,TOTAL 0.1 mg/dL (0.2-1.0); BLOOD UREA NITROGEN 14 mg/dL (7-18); CALCIUM 8.2 mg/dL (8.5-10.1); CO2 26 mmol/L (21-32); CREATININE 0.6 mg/dL (0.55-1.02); GLUCOSE,RANDOM 80 mg/dL (74-106); SGOT/AST 11 U/L (15-37); SGPT/ALT 18 U/L (12-78); TOT PROT 5.6 g/dl (6.4-8.2)
[2018-07-20] MEDS: ENOXAPARIN NA (PORCINE) 40 MG/0.4 ML DISP.SYRIN SQ SCH (10:14)
--- NOTE | 2018-07-20 11:45 | PN ---
Progress Note, Physician History of Present Illness: main complain is lot of pain on the operated site cx report noted - Current Medication List Current Medications: Active Medications Acetaminophen (Tylenol -) 650 mg PO Q6H PRN PRN Reason: FEVER Acetaminophen (Tylenol -) 325 mg PO Q4H PRN PRN Reason: PAIN SCALE 6-10 Stop: 07/22/18 12:43 Last Admin: 07/20/18 06:03 Dose: 325 mg Docusate Sodium (Colace -) 100 mg PO BID PRN PRN Reason: CONSTIPATION Last Admin: 07/19/18 15:55 Dose: 100 mg Enoxaparin Sodium (Lovenox -) 40 mg SQ DAILY MIRNA Last Admin: 07/20/18 10:14 Dose: 40 mg Lactated Ringer's (Lactated Ringers Solution) 1,000 mls @ 75 mls/hr IV ASDIR MIRNA Last Admin: 07/19/18 18:14 Dose: 75 mls/hr Vancomycin HCl 1,250 mg/ (Dextrose) 250 mls @ 250 mls/2 hr IVPB Q24H MIRNA; Protocol Last Admin: 07/19/18 17:17 Dose: 250 mls/2 hr Ibuprofen (Motrin -) 400 mg PO Q6H PRN PRN Reason: PAIN LEVEL 4 - 6 Last Admin: 07/20/18 06:35 Dose: 400 mg Ondansetron HCl (Zofran Injection) 4 mg IVPB Q8H PRN PRN Reason: NAUSEA Last Admin: 07/19/18 22:07 Dose: 4 mg Oxycodone HCl (Roxicodone -) 5 mg PO Q4H PRN PRN Reason: PAIN SCALE 6-10 Last Admin: 07/20/18 06:02 Dose: 5 mg - Objective Vital Signs: Vital Signs Temperature 97.8 F 07/20/18 10:26 Pulse Rate 78 07/20/18 10:26 Respiratory Rate 19 07/20/18 10:26 Blood Pressure 106/74 07/20/18 10:26 O2 Sat by Pulse Oximetry (%) 99 07/19/18 21:00 Constitutional: Yes: Calm, Mild Distress Cardiovascular: Yes: Regular Rate and Rhythm Respiratory: Yes: Regular, CTA Bilaterally Gastrointestinal: Yes: Normal Bowel Sounds, Soft Musculoskeletal: Yes: WNL Extremities: Yes: Other Wound/Incision: Yes: Dressing Dry and Intact Neurological: Yes: Alert, Oriented Psychiatric: Yes: Alert, Oriented Labs: CBC, BMP 07/20/18 05:15 07/20/18 05:15 Assessment/Plan cellulittis swelling of the leg wound infection cx results noted plan continue current mgmt when surgery clears the patient can be switched to oral doxy 100 mg po bid for another 12 days
--- NOTE | 2018-07-20 13:43 | PN ---
Progress Note (short form) - Note Progress Note: complains of pain says need more pain meds anxious i/d f/u noted/ discussed afebrile Vital Signs Temp 97.8 F 07/20/18 10:26 Pulse 78 07/20/18 10:26 Resp 19 07/20/18 10:26 BP 106/74 07/20/18 10:26 Pulse Ox 99 07/20/18 09:00 Intake & Output 07/19/18 07/20/18 07/20/18 23:59 11:59 23:59 Intake Total 460 1560 Balance 460 1560 Weight 151 lb Intake: IV 900 Lactated Ringers Solution 900 1,000 ml @ 75 mls/hr IV ASDIR MIRNA Rx#:[id number] Oral 460 660 Other: Voiding Method Toilet Toilet # Unmeasured Voids Void 2 1 Bowel Movement No No Height 5 ft 3 in Body Mass Index (BMI) 26.7 Active Medications Acetaminophen (Tylenol -) 650 mg PO Q6H PRN PRN Reason: FEVER Acetaminophen (Tylenol -) 325 mg PO Q4H PRN PRN Reason: PAIN SCALE 6-10 Stop: 07/22/18 12:43 Last Admin: 07/20/18 12:51 Dose: 325 mg Docusate Sodium (Colace -) 100 mg PO BID PRN PRN Reason: CONSTIPATION Last Admin: 07/19/18 15:55 Dose: 100 mg Enoxaparin Sodium (Lovenox -) 40 mg SQ DAILY [facility] Last Admin: 07/20/18 10:14 Dose: 40 mg Lactated Ringer's (Lactated Ringers Solution) 1,000 mls @ 75 mls/hr IV ASDIR MIRNA Last Admin: 07/19/18 18:14 Dose: 75 mls/hr Vancomycin HCl 1,250 mg/ (Dextrose) 250 mls @ 250 mls/2 hr IVPB Q24H [facility]; Protocol Last Admin: 07/19/18 17:17 Dose: 250 mls/2 hr Ibuprofen (Motrin -) 400 mg PO Q6H PRN PRN Reason: PAIN LEVEL 4 - 6 Last Admin: 07/20/18 12:51 Dose: 400 mg Ondansetron HCl (Zofran Injection) 4 mg IVPB Q8H PRN PRN Reason: NAUSEA Last Admin: 07/19/18 22:07 Dose: 4 mg Oxycodone HCl (Roxicodone -) 10 mg PO Q6H PRN PRN Reason: PAIN SCALE 6-10 CBC, BMP 07/20/18 05:15 07/20/18 05:15 Abnormal Lab Results 07/20/18 07/20/18 05:15 05:15 RBC 3.43 L Hgb 10.6 L Hct 31.3 L Eosinophils % 5.0 H Chloride 109 H Calcium 8.2 L Total Bilirubin 0.1 L AST 11 L Total Protein 5.6 L Albumin 2.8 L Lyme titers - Pending Physical Exam. Constitutional: Yes: Anxious. no distress. Neck: Yes: Supple. no jvd Cardiovascular: Yes: Regular Rate and Rhythm Respiratory: Yes: CTA Bilaterally Gastrointestinal: Yes: Soft Wound/Incision: Yes: Dressing Dry and Intact Neurological: Yes: Alert Assessment/Plan Pod # 2 Abx Pain control-- will increase oxy dose stool softners surgery to follow Anticipate d/c tomorrow on po abx will follow mrsa precautions in place Problem List - Problems (1) Cellulitis Code(s): L03.90 - CELLULITIS, UNSPECIFIED Qualifiers: Site of cellulitis: extremity Site of cellulitis of extremity: lower extremity Laterality: right Qualified Code(s): L03.115 - Cellulitis of right lower limb
[2018-07-20] MEDS: VANCOMYCIN 1,250 MG in DEXTROSE 5%-WATER - 250 ML IVPB SCH (17:40)
[2018-07-20] MEDS: LACTATED RINGERS SOLUTION 1,000 ML IV SCH ×2 (17:40→22:47)
[2018-07-20] MEDS ORDERED: MELATONIN 5 MG TABLETS PO PRN (17:44)
[2018-07-20] MEDS ORDERED: LORazepam 0.5 MG TABLET PO ONE (21:00)
[2018-07-20] MEDS: ONDANSETRON 4 MG/2 ML VIAL IVPB PRN (22:47)
[2018-07-21] MEDS: oxyCODONE HCL 5 MG TABLET PO PRN ×2 (05:06→13:11)
[2018-07-21] MEDS: ACETAMINOPHEN 325 MG TABLET (FP) PO PRN ×2 (05:06→13:09)
[2018-07-21] MEDS: ENOXAPARIN NA (PORCINE) 40 MG/0.4 ML DISP.SYRIN SQ SCH (09:30)
[2018-07-21] MEDS: IBUPROFEN 400 MG TABLET (FP) PO PRN (09:30)
--- NOTE | 2018-07-21 09:35 | PN ---
Progress Note (short form) - Note Progress Note: Attending Surgeon POD#3 c/o less pain; wound care in progress VSS AF wound open and granulating; minimal surrounding erythema and ttp; o/w negative cultures reviewed; ID notes reviewed IMP: doing well PLAN: Patient instructed on wound care and office f/u; may be discharged to outpatient f/u pending clearance by primary care team. Shahid Okeefe MD FACS
[2018-07-21] MEDS: ONDANSETRON 4 MG/2 ML VIAL IVPB PRN (09:41)
--- NOTE | 2018-07-21 12:28 | DS ---
Physical Examination Vital Signs: Vital Signs Temperature 98.4 F 07/21/18 06:00 Pulse Rate 70 07/21/18 06:00 Respiratory Rate 20 07/21/18 06:00 Blood Pressure 103/58 07/21/18 06:00 O2 Sat by Pulse Oximetry (%) 99 07/20/18 21:00 Findings/Remarks: pt seen/ examined feels better pain better pod # 3 surgical f/u noted Constitutional: Yes: No Distress, Calm Cardiovascular: Yes: Regular Rate and Rhythm Respiratory: Yes: CTA Bilaterally Wound/Incision: Yes: Dressing Dry and Intact Neurological: Yes: WNL, Oriented Labs: CBC, BMP 07/20/18 05:15 07/20/18 05:15 Discharge Summary Reason For Visit: CELLULITIS Current Active Problems Cellulitis (Acute) Hyperglycemia (Acute) Hospital Course: pod #3 s/p i/d mrsa + cleared by surgery for d/c Instructions given by surgeon for wound care- pt says she understood will d/c in po abx pt would like to go to work on -- 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 pt in agreement with all above Discussed with nursing staff also. Condition: Stable - Instructions Referrals: Shahid Okeefe MD [Staff Physician] - Prince Wheleer MD [Primary Care Provider] - Disposition: HOME - Home Medications Comprehensive Discharge Medication List: Ambulatory Orders Docusate Sodium [Colace -] 100 mg PO BID PRN #60 capsule 07/21/18 Doxycycline Hyclate 100 mg PO BID #24 tablet 07/21/18 Ibuprofen [Motrin -] 400 mg PO Q6H PRN #60 tablet 07/21/18 oxyCODONE HCL [Roxicodone -] 5 mg PO Q6H PRN #20 tablet MDD 4 07/21/18
--- NOTE | 2018-07-21 13:34 | PN ---
Progress Note, Physician History of Present Illness: says doing well no issues - Current Medication List Current Medications: Active Medications Acetaminophen (Tylenol -) 650 mg PO Q6H PRN PRN Reason: FEVER Last Admin: 07/21/18 13:09 Dose: 650 mg Acetaminophen (Tylenol -) 325 mg PO Q4H PRN PRN Reason: PAIN SCALE 6-10 Stop: 07/22/18 12:43 Last Admin: 07/20/18 12:51 Dose: 325 mg Docusate Sodium (Colace -) 100 mg PO BID PRN PRN Reason: CONSTIPATION Last Admin: 07/19/18 15:55 Dose: 100 mg Enoxaparin Sodium (Lovenox -) 40 mg SQ DAILY MIRNA Last Admin: 07/21/18 09:30 Dose: 40 mg Lactated Ringer's (Lactated Ringers Solution) 1,000 mls @ 75 mls/hr IV ASDIR MIRNA Last Admin: 07/20/18 22:47 Dose: 75 mls/hr Vancomycin HCl 1,250 mg/ (Dextrose) 250 mls @ 250 mls/2 hr IVPB Q24H MIRNA; Protocol Last Admin: 07/20/18 17:40 Dose: 250 mls/2 hr Ibuprofen (Motrin -) 400 mg PO Q6H PRN PRN Reason: PAIN LEVEL 4 - 6 Last Admin: 07/21/18 09:30 Dose: 400 mg Melatonin (Melatonin) 5 mg PO HS PRN PRN Reason: INSOMNIA Last Admin: 07/20/18 22:47 Dose: 5 mg Ondansetron HCl (Zofran Injection) 4 mg IVPB Q8H PRN PRN Reason: NAUSEA Last Admin: 07/21/18 09:41 Dose: 4 mg Oxycodone HCl (Roxicodone -) 10 mg PO Q6H PRN PRN Reason: PAIN SCALE 6-10 Last Admin: 07/21/18 13:11 Dose: 10 mg - Objective Vital Signs: Vital Signs Temperature 98.4 F 07/21/18 06:00 Pulse Rate 80 07/21/18 10:00 Respiratory Rate 18 07/21/18 10:00 Blood Pressure 126/72 07/21/18 10:00 O2 Sat by Pulse Oximetry (%) 97 07/21/18 09:00 Constitutional: Yes: No Distress, Calm Eyes: Yes: Conjunctiva Clear HENT: Yes: Atraumatic, Normocephalic Neck: Yes: Supple Cardiovascular: Yes: Regular Rate and Rhythm Respiratory: Yes: Regular, CTA Bilaterally Gastrointestinal: Yes: Normal Bowel Sounds, Soft Musculoskeletal: Yes: WNL Extremities: Yes: WNL Wound/Incision: Yes: Dressing Dry and Intact Neurological: Yes: Alert, Oriented Labs: CBC, BMP 07/20/18 05:15 07/20/18 05:15 Assessment/Plan cellulittis swelling of the leg wound infection cx results noted plan continue current mgmt continue abx as planned wound care rest as per the team
--- NOTE | 2018-07-21 14:05 | OP ---
DATE OF OPERATION: 07/18/2018 PREOPERATIVE DIAGNOSIS: Soft tissue abscess and infection, right lower extremity. POSTOPERATIVE DIAGNOSIS: Soft tissue abscess and infection, right lower extremity. PROCEDURE: Excisional debridement of soft tissue infection, right lower extremity. SURGEON: Shahid Okeefe MD ANESTHESIA: General. OPERATIVE FINDINGS: There was nonviable skin, subcutaneous fat, and superficial fat of an area of the right lower extremity above the ankle from a soft tissue abscess and infection. The rest of the findings were unremarkable. DESCRIPTION OF PROCEDURE: The patient was placed on the operating room table in supine position, and after the induction of general anesthesia, the right lower extremity was prepped with Betadine and draped in sterile fashion. A time-out was taken. Then using a scalpel, all nonviable skin, subcutaneous fat, and superficial fascia was excised and sent for pathological examination. Cultures was taken from the wound prior to excision. All nonviable tissue was then curetted and sent for pathological examination as well. Hemostasis was secured with electrocautery, and the wound was irrigated with a 50/50 solution of saline and peroxide. Again, hemostasis was verified and then the wound was packed with 1/2-inch iodoform gauze and dressed with 4 x 4's and Kerlix. The procedure was terminated at this point and the patient aroused from general anesthesia and transferred to the post anesthesia care unit in stable condition awake and alert. ESTIMATED BLOOD LOSS: 10 mL. REPLACEMENT: Crystalloid. DRAINS: None. SPECIMEN: Nonviable skin and subcutaneous fat and superficial fascia to pathology. I, Shahid Okeefe, was physically present in the operating room from the time the patient was placed on the operating room table until she was transferred to the post anesthesia care unit in [facility]. MD IRASEMA Crum/[id number] MTDD
[2018-07-21 14:18] VITALS: BP 122/72; PULSE 84; TEMP 98.6
--- NOTE | 2018-07-23 18:21 | PATH ---
Surgical Pathology Report Patient Name: VERONICA WORLEY [facility]. Rec. #: [id number] /Age/Gender: 1985 (Age: 33) / F Account: [id number] Location: [address] [place] [address]/[facility] Taken: 07/22/2018 Received: 07/22/2018 Reported: 07/23/2018 Physicians: MD Will Lozano M.D. Specimen(s) Received DEBRIDEMENT TISSUE RIGHT LOWER LEG Clinical History Infected wound right lower leg Final Diagnosis DEBRIDED TISSUE RIGHT LOWER LEG, EXCISION: SKIN WITH ULCERATION, SEVERE ACUTE AND CHRONIC INFLAMMATION WITH ABSCESS FORMATION. Electronically Signed Cassy Pickard M.D. Gross Description Received in formalin labeled "debrided tissue right leg," is a 2.0 x 1.6 cm piña-brown, ulcerated portion of skin excised to a depth of 0.5 cm. [employer] Lead sections are submitted in one cassette. /07/22/2018 saudi/07/22/2018
== END 2018-07-21 15:31 | disposition home or self-care (01) | DRG 264 ==
LOC: JER 16:27 → JERBED 18:20 → J5S 22:42
PROVIDERS: ADMIT Internal Medicine; ATTEND Internal Medicine
PROC: 0JBN0ZZ Excision of Right Lower Leg Subcutaneous Tissue and Fascia, Open Approach (ICD-10-PCS; principal; 2018-07-18 14:30)
DX: L03.115 Cellulitis of right lower limb (principal); R73.9 Hyperglycemia, unspecified; E66.9 Obesity, unspecified; Z68.26 Body mass index [BMI] 26.0-26.9, adult
CPT/HCPCS: 36415; 80048; 80053; 81003; 81015; 84703; 85025; 87040; 87070; 87186; 87205; 88304-TC; 93971-TC; 94760; 99282-25